=== PATIENT | female | born 1955 | race Caucasian/White ===

== ENCOUNTER 2018-09-06 21:49 | Emergency (ER) | payer OTHER ==
[~2018-09-06] VITALS: Ht 157.5 cm; Wt 74.8 kg
[2018-09-06 22:44] LABS: ABSOLUTE NEUTROPHILS 7.9 thou/uL (1.4-8.2); BASOPHILS 0.8 % (0.0-2.0); EOSINOPHILS 0.2 % (0.0-3.0); HEMATOCRIT 39.9 % (37.0-47.0); HEMOGLOBIN 13.6 gm/dL (12.0-15.0); LYMPHOCYTES 10.8 % (24.0-44.0); MCH 30.4 pg (26.0-34.0); MCV 89.3 fL (80.0-100.0); MONOCYTES 2.4 % (1.0-8.0); PLATELET COUNT 263 thou/uL (150-400); POLYS 85.8 % (36.0-66.0); RBC 4.46 mil/uL (4.20-5.00); RDW 13.4 % (10.5-14.5); WBC 9.2 thou/uL (4.0-11.0)
[2018-09-06 22:57] LABS: URINE BILIRUBIN NEGATIVE (Negative); URINE BLOOD 2+ (Negative); URINE CLARITY CLEAR; URINE COLOR YELLOW; URINE GLUCOSE-RANDOM* NEGATIVE (Negative); URINE KETONES NEGATIVE (Negative); URINE LEUKOCYTES-REFLEX TRACE (Negative); URINE NITRITE-REFLEX NEGATIVE (Negative); URINE PROTEIN (DIPSTICK) NEGATIVE (Negative); URINE SPECIFIC GRAVITY <= 1.005 (1.005-1.035); URINE UROBILINOGEN 0.2 E.U./dl (0.2-1.0)
[2018-09-06 22:58] LABS: ANION GAP 15 mmol/L (7-16); BUN 14 mg/dL (7-18); CHLORIDE 102 mmol/L (98-107); CO2 23 mmol/L (21-32); CREATININE 0.9 mg/dL (0.6-1.0); GLUCOSE 100 mg/dL (74-106); POTASSIUM 3.6 mmol/L (3.5-5.1); SODIUM 140 mmol/L (136-145)
[2018-09-06 23:05] LABS: AMP/METHAMP Negative (Negative); BARBITURATES Negative (Negative); BENZODIAZEPINES Negative (Negative); COCAINE Negative (Negative); METHADONE Negative (Negative); OPIATES Negative (Negative); PCP Negative (Negative)
[2018-09-06 23:08] LABS: ALBUMIN 4.1 g/dL (3.4-5.0); LIPASE 526 U/L (73-393); SALICYLATE < 2.8 mg/dL (2.8-20.0); SGOT 19 U/L (15-37); SGPT 20 U/L (30-65); TOTAL BILIRUBIN 0.4 mg/dL (<0.1-1.0); TOTAL PROTEIN 7.7 g/dL (6.4-8.2); TROPONIN-I <0.06 ng/mL (<0.06)
[2018-09-06 23:11] LABS: BACTERIA-REFLEX None Seen /HPF (None Seen); CASTS None Seen /LPF (None Seen); CRYSTALS None Seen /LPF (None Seen); MUCUS None Seen strn/LPF (None Seen); SQUAMOUS None Seen /LPF (0-3); URINE RBC None Seen /HPF (0-2); URINE WBC-REFLEX None Seen /HPF (0-5)
[2018-09-06] MEDS ORDERED: ATIVAN0.5 MG PO (23:16)
[2018-09-06] MEDS ORDERED: ONDANSETRON ODT8 MG PO (23:16)
[2018-09-07 00:40] VITALS: BP 114/72
[2018-09-07] MEDS ORDERED: LISINOPRIL10 MG PO (05:29)
[2018-09-07] MEDS ORDERED: ZOCOR20 MG PO (05:30)
[2018-09-07] MEDS ORDERED: AMBIEN 5 MG TABL5 M1 PO (05:30)
[2018-09-07] MEDS ORDERED: XANAX 0.25 MG0.25 MG PO (05:30)
[2018-09-07] MEDS ORDERED: CLOBETASOL PROP50 G1 TOP (05:32)
[2018-09-07] MEDS ORDERED: ZOVIRAX30 GM TOP (05:33)
[2018-09-07] MEDS ORDERED: KETOCONAZOLE15 GM TOP (05:33)
[2018-09-07] MEDS ORDERED: CLOTRIMAZOLE-BE15 GM (05:34)
--- NOTE | 2018-09-07 10:32 | EKG ---
[place] [address] [employer] [facility] [place] [address] ELECTROCARDIOGRAM REPORT Name: MARZENA SEGURA Room #: [facility]#: [id number] ������������������ Admission: 09/06/18 ������������������ Attend Phys: Discharge: 09/07/18 ������������������ Date of : 57 Report #: [id number] ����������������������������������������������������������������� [id number] THIS REPORT FOR: //name// [facility] ED Test Date: 2018-09-06 Test Time: 22:27:25 Pat Name: MARZENA SEGURA Department: Room: Gender: F Industrial Relations Counselor: LRHERMELINDA : 1955 Requested By: Isauro Rich Order Number: [id number] MD: Moses Guerrero Measurements Intervals [place] Rate: 65 P: 36 SC: 133 QRS: 23 QRSD: 95 T: 39 QT: 426 QTc: 443 Interpretive Statements Sinus rhythm Normal tracing Compared to ECG 12/06/2007 14:02:21 Poor R-wave progression no longer present T-wave abnormality no longer present Electronically Signed On 09-07-2018 10:31:58 CDT by Moses Guerrero [email or web address] ��������������������������������������������� <ELECTRONICALLY SIGNED> ���������������������������������������� By: Moses Guerrero MD, [facility] ��������������������������������������������� 09/07/18 103 26 26 Moses Guerrero MD, [facility] /EPI
== END 2018-09-07 00:40 | disposition home or self-care (01) ==
LOC: ER 21:49
PROVIDERS: Emergency Medicine
DX: F45.8 Other somatoform disorders (principal); J06.9 Acute upper respiratory infection, unspecified; R11.2 Nausea with vomiting, unspecified; I10 Essential (primary) hypertension; Z88.2 Allergy status to sulfonamides; Z91.013 Allergy to seafood